=== PATIENT | female | born 1960 | race Caucasian/White ===

== ENCOUNTER 2022-02-10 11:46 | Day surgery (SDC) | payer BC ==
[2022-02-10] MEDS ORDERED: Lactated Ringers 1,000 ML IV SCH (12:30)
[2022-02-10] MEDS ORDERED: DIPRIVAN 200 MG/20 ML IV ONE ×2 (15:48→16:42)
[2022-02-10] MEDS ORDERED: Versed 2 MG/2 ML Injection ONE (15:48)
[2022-02-10] MEDS ORDERED: GlucaGen 1 MG ONE (16:09)
[2022-02-10] MEDS ORDERED: Lactated Ringers 1,000 ML IV ONE (16:37)
[2022-02-10 17:27] VITALS: O2SAT 100
[2022-02-10 17:48] VITALS: BP 155/80; PULSE 65
--- NOTE | 2022-02-12 10:46 | OP ---
PROCEDURE DATE/TIME: 02/10/2022 1604 PREOPERATIVE DIAGNOSIS: Recent history of reported rectal polyps. POSTOPERATIVE DIAGNOSES: 1) Colon polyps. 2) Mild rectal prolapse. 3) Perianal tag. 4) Clinical finding consistent with traumatic vaginal . 5) Mild sigmoid diverticulosis. PROCEDURES: 1) Colonoscopy with hot snare transverse colon polyp. 2) Hot forceps transverse colon polyp. 3) Cold snare rectosigmoid polyp. PROCEDURE PERFORMED BY: Julia Burch M.D. COMPLICATIONS: None. ESTIMATED BLOOD LOSS: Minimal. ANESTHESIA: MAC. SPECIMENS: 1) Rectosigmoid polyp. 2) Transverse colon polyp. HISTORY: This is a 62-year-old female who has had a history of a traumatic vaginal with her first child. She had significant tearing per her report. She recently had a pelvic exam with a Pap smear and a possible rectal polyp was noted so she presents for further investigation and colonoscopy. Risks, benefits, alternatives were all discussed with her preoperatively. H&P and consent reviewed with her and obtained. All questions answered. DESCRIPTION OF PROCEDURE: She was then brought back to the endoscopy suite and laid in left lateral decubitus position. First, a vaginal and rectal inspection was done. I then palpated the wall between the vagina and the rectum. I did do this in office but with the patient asleep and in this position I was able to get a slightly better visualization. The patient appeared to have an intact wall between her vagina and her rectum. She does have a thick white scar between the two structures and the scar appears to be essentially pulling and distorting her anus so that her anus is slightly more angled anterior. Her anus and vagina are relatively close in proximity with what I would expect due to a contracture of the scar. She also has a small 2 mm anal tag at the anterior aspect of her anal canal which is close to her vagina and I suspect this is the polypoid lesion that was identified on her clinical exam. She also has a small amount of rectal prolapse anteriorly that bulged slightly in the office and also was bulging despite sedation in the left lateral decubitus position here. She has some mild hemorrhoidal disease. We took a very close look with our scope as well as with a digital exam and I do not feel any true polyp in the actual anal canal or the rectum. I did insert the scope and gently advance it to the level of the cecum. The appendiceal orifice and ileocecal valve were identified and these looked normal and so the scope was carefully withdrawn. The patient had some mild diverticulosis of the sigmoid and she had polyps otherwise the remainder of the colonoscopy was normal. The polyp findings were as follows: There was a rectosigmoid polyp that was taken with cold snare that was small. There was also a transverse polyp that was semi-pedunculated was about 1 cm in size and taken with a hot snare and then a smaller transverse colon polyp that was about 3 to 4 cm in size that was taken with hot forceps. All were polyps were insured to be removed. Specimens were then retrieved and sent to pathology. Everything looked hemostatic. The scope was slowly withdrawn. The patient tolerated the procedure very well. There were no immediate complications. Based on her findings, we will plan to do another colonoscopy in three years for screening. I discussed the results with her family. She and I will discuss these results at our postoperative visit when we can go through her final pathology and then we will discuss her anal-vaginal scarring, mild prolapse, anal tag and where to go next with this based on her symptoms at our next appointment. I have discussed this also with her family.
== END 2022-02-10 17:55 | disposition home or self-care (01) ==
LOC: SDC 11:46
PROVIDERS: ATTEND Surgery
DX: Z09 Encounter for follow-up examination after completed treatment for conditions other than malignant neoplasm (principal); Z87.19 Personal history of other diseases of the digestive system; D12.5 Benign neoplasm of sigmoid colon; K62.3 Rectal prolapse; K64.4 Residual hemorrhoidal skin tags; K57.30 Diverticulosis of large intestine without perforation or abscess without bleeding; Z87.59 Personal history of other complications of pregnancy, childbirth and the puerperium
CPT/HCPCS: 88305; J1610; J2250; J2704

== ENCOUNTER 2025-08-07 10:24 | Day surgery (SDC) | payer OTHER ==
[~2025-08-07 10:24] MED LIST: Lactated Ringers 1,000 ML IV ONE
[2025-08-07 10:42] VITALS: RESP 18
[2025-08-07 11:08] LABS: Calcium 9.7 mg/dL (8.4-10.2); Carbon Dioxide 24.0 mmol/L (22-30); Creatinine 1 0.78 mg/dL (0.52-1.04); EST GLOMERULAR FILTRATION RATE 84.8 ML/MIN; Glucose 87.0 mg/dL (74-106); Potassium 3.8 mmol/L (3.5-5.1)
[2025-08-07] MEDS: Lactated Ringers 1,000 ML IV SCH (12:31)
[2025-08-07] MEDS ORDERED: Versed 2 MG/2 ML Injection ONE (13:40)
[2025-08-07] MEDS ORDERED: Xylocaine-Mpf 2% 5 Ml Vial ONE (13:48)
[2025-08-07] MEDS ORDERED: propofoL IV ONE ×3 (13:48→14:23)
[2025-08-07 15:13] VITALS: BP 157/75; PULSE 52; TEMP 96.8; O2SAT 100
--- NOTE | 2025-08-14 09:54 | OP ---
SURGERY DATE/TIME: 08/07/2025 [id number] PREOPERATIVE DIAGNOSES: Screening/surveillance, history of polyps. POSTOPERATIVE DIAGNOSES: 1) Colon polyp. 2) Diverticulosis. 3) Rectal prolapse. 4) trauma. PROCEDURE: Colonoscopy with cold snare polypectomy. SURGEON: Julia Burch MD. ANESTHESIA: MAC. ESTIMATED BLOOD LOSS: Minimal. COMPLICATIONS: None. SPECIMENS: Rectosigmoid polyp. INDICATIONS: This is a patient who presents for a colonoscopy. She has a history of polyps in the past. She presents for screening and surveillance. She is not having any acute symptoms. The patient was seen in the preoperative area. We discussed the procedure, the risks, and the benefits. We have also completed her H and P. She would like to proceed and she understands the risks, benefits, and alternatives, and all of her questions have been answered. DESCRIPTION OF PROCEDURE AND FINDINGS: She was then brought back to the endoscopy suite. She was laid in the left lateral decubitus position. A complete time-out was performed. A perianal inspection and a digital rectal exam were done. The patient does appear to have significant trauma. She has an anterior rectal scar. She does have some laxity of the sphincter and she also has a mild prolapse which is more prominent in the right anterior region to the right of the thick anterior scar and there is a mild irritation of the rectal mucosa here. On digital exam, I did not feel any masses. We then inserted the scope and gently advanced this to the level of the cecum. There were no additional findings in the rectum outside of the trauma. Otherwise, the rectum looked healthy. The scope was able to be advanced to the cecum and the prep overall was satisfactory. We were able to identify the ileocecal valve and the appendiceal orifice, and then the scope was carefully withdrawn taking a circumferential view. The patient does have diverticulosis which was mainly noted in the sigmoid and the descending colon. She also had a polyp in the rectosigmoid region which was small and taken in entirety with a cold snare. The specimen was retrieved and the site was hemostatic. The scope was then further withdrawn. No other findings were identified other than those already mentioned. The remainder of the colon appeared healthy. The patient tolerated the procedure very well. There were no immediate complications. Tentative plan will be for a colonoscopy in 5 to 7 years based on her final pathology report and closer review of her previous pathology with her. I also would recommend further evaluation and potentially treatment for her rectal findings which we will discuss at our appointment as well.
== END 2025-08-07 15:33 | disposition home or self-care (01) ==
LOC: SDC 10:24
PROVIDERS: ATTEND Surgery
DX: Z12.11 Encounter for screening for malignant neoplasm of colon (principal); Z09 Encounter for follow-up examination after completed treatment for conditions other than malignant neoplasm; Z86.0100 Personal history of colon polyps, unspecified; K57.30 Diverticulosis of large intestine without perforation or abscess without bleeding; K62.3 Rectal prolapse; Z87.828 Personal history of other (healed) physical injury and trauma; D12.7 Benign neoplasm of rectosigmoid junction